=== PATIENT | female | born 1995 | race Caucasian/White ===

== ENCOUNTER 2021-11-25 01:23 | Emergency (ER) | payer OTHER, SELFPAY ==
[2021-11-25 01:24] VITALS: BP 141/97; PULSE 94; RESP 18; TEMP 36.8; O2SAT 97; BMI 37.2
[2021-11-25 01:42] VITALS: BMI 27.3
--- NOTE | 2021-11-25 01:43 | CT_ITS ---
PROCEDURE INFORMATION: Exam: CT Abdomen And Pelvis With Contrast Exam date and time: 11/25/2021 1:43 AM Age: 26 years old Clinical indication: Abdominal pain; Other: Mid abdomen pain radiating to RT flank; Prior surgery; Surgery date: 6+ months; Surgery type: Gb; Additional info: Abd pain TECHNIQUE: Imaging protocol: Computed tomography of the abdomen and pelvis with contrast. Radiation optimization: All CT scans at this facility use at least one of these dose optimization techniques: automated exposure control; mA and/or kV adjustment per patient size (includes targeted exams where dose is matched to clinical indication); or iterative reconstruction. Contrast material: ISOVUE; Contrast volume: 75 ml; Contrast route: IV; COMPARISON: PTV US PELVIS-TRANSVAGINAL ONLY 02/09/2015 11:35 AM FINDINGS: Liver: There is diffuse hypoattenuation of the liver compatible with mild hepatic steatosis. Gallbladder and bile ducts: There are surgical clips within the gallbladder fossa. Pancreas: Normal. No ductal dilation. Spleen: Normal. No splenomegaly. Adrenal glands: Normal. No mass. Kidneys and ureters: Normal. No hydronephrosis. Stomach and bowel: Unremarkable. No obstruction. No mucosal thickening. Appendix: No evidence of appendicitis. Intraperitoneal space: Unremarkable. No free air. No significant fluid collection. Vasculature: Unremarkable. No abdominal aortic aneurysm. Lymph nodes: Right lower quadrant multiple mesenteric nodes measuring greater than 5 mm in short axis are present, which can be seen with mesenteric adenitis. Urinary bladder: Unremarkable as visualized. Reproductive: Unremarkable as visualized. Bones/joints: Unremarkable. No acute fracture. Soft tissues: Normal. IMPRESSION: Right lower quadrant multiple mesenteric nodes measuring greater than 5 mm in short axis are present, which can be seen with mesenteric adenitis.
[2021-11-25 01:47] VITALS: BP 141/97; PULSE 107; TEMP 37; O2SAT 97
[2021-11-25 01:49] LABS: Microscopic, Urine URINE MICROSCOPIC (MICROSCOPIC)
[2021-11-25 01:52] LABS: Basophils # 0.1 K/mm3 (0-0.2); Eosinophils # 0.2 K/mm3 (0.0-0.4); Eosinophils % 1.3 % (0.1-12.0); Hematocrit 41.5 % (37.0-47.0); Hemoglobin 13.6 g/dL (12.2-16.2); Lymphocytes # 4.1 K/mm3 (0.7-4.5); Lymphocytes % 36.7 % (10-50); Mean Corpuscular HGB Conc 32.7 g/dL (31.8-35.4); Mean Corpuscular Hemoglobin 29.7 pg (27.0-31.2); Mean Corpuscular Volume 90.8 fl (81-99); Mean Platelet Volume 7.3 fl (7.4-10.4); Monocytes # 0.6 K/mm3 (0.1-1.0); Monocytes % 5.2 % (1.7-9.3); Neutrophils # 6.2 K/mm3 (1.8-7.8); Neutrophils % 55.8 % (37.0-80.0); Platelet Count 399 K/mm3 (142-424); Red Blood Count 4.57 M/mm3 (4.20-5.40); Red Cell Distribution Width 12.9 % (11.5-17.5); White Blood Count 11.2 K/mm3 (4.8-10.8)
[2021-11-25 01:56] LABS: Appearance,Urine CLOUDY (Clear); Bilirubin,Urine Negative (Negative); Blood, Urine Negative (Negative); Color,Urine YELLOW (Yellow); Glucose,Urine (UA) Negative (Negative); Ketones,Urine Negative (Negative); Leukocyte Esterase,Urine Negative (Negative); Nitrate,Urine Negative (Negative); PH,Urine 7.5 (5.0-8.5); Protein,Urine Negative (Negative)
[2021-11-25 01:57] LABS: Alanine Aminotransferase 19 U/L (12-78); Albumin Level 4.1 g/dl (3.5-5.0); Albumin/Globulin Ratio 1.4 (1.1-1.8); Alkaline Phosphatase 62 U/L (38-126); Amylase 77 U/L (30-110); Anion Gap 11.9 mEq/L (5-15); Aspartate Amino Transferase 27 U/L (14-36); Bilirubin,Total 0.4 mg/dl (0.2-1.3); Blood Urea Nitrogen 13 mg/dl (7-17); Calcium 9.2 mg/dl (8.4-10.2); Carbon Dioxide 27 mmol/L (22.0-30.0); Chloride 104 mmol/L (98-107); Creatinine Clearance Estimated 136 mL/min (50-200); Estimated Glomerular Filt Rate 86 ml/min (>60); GFR (African American) 104 ML/MIN (>60); Glucose 90 mg/dl (74-100); Lipase 72 U/L (23-300); Potassium 3.9 mmoL/L (3.5-5.1); Sodium 139 mmol/L (136-145); Total Protein,Serum 7.1 g/dl (6.3-8.2)
[2021-11-25 01:59] LABS: Urine Pregnancy, HCG Qual. Negative (Negative)
[2021-11-25 02:03] LABS: C-Reactive Protein 27.5 mg/L (0-4)
[2021-11-25 02:08] LABS: Amorphous Sediment,Urine 1+ /lpf; Bacteria,Urine 3+ /lpf; Mucus,Urine 1+ /lpf
[2021-11-25 02:16] LABS: Procalcitonin 0.051 ng/mL (0.0-2.0)
[2021-11-25 02:19] LABS: Erythrocyte Sedimentation Rate 19 mm/hr (0-20)
--- NOTE | 2021-11-25 02:24 | HMH.EDNVD ---
ED Disposition Clinical Impression: Sphincter of Oddi dysfunction Abdominal pain Qualifiers: Abdominal location: right upper quadrant Qualified Code(s): R10.11 - Right upper quadrant pain Disposition: Home, Self-Care Condition on Discharge: Good Instructions: DI for Acute Abdominal Pain Additional Instructions: fluids and see pcp for follow up Referrals: Tulio Hill [Primary Care Provider] - - Critical Care Critical Care Time: No Attestation: On 11/25/21, the high probability of a clinically significant, sudden or life threatening deterioration of the following system(s) required my full and direct attention, intervention and personal management. The time I documented below is in addition to time spent performing reported procedures but includes the following listed in this critical care notation. Medical Decision Making - Medical Records Medical records reviewed: Yes: I reviewed the patient's medical records. - Yan Inquiry Pt receiving controlled substance: No Vital Signs: 11/25/21 01:24 11/25/21 01:47 Temperature 98.2 F 98.6 F Temperature Source Oral Oral Pulse Rate 107 H Pulse Rate [Apical] 94 H Respiratory Rate 18 Blood Pressure 141/97 H Blood Pressure [Right Arm] 141/97 H Blood Pressure Mean [Right Arm] 111 Blood Pressure Source [Right Arm] Automatic Cuff Blood Pressure Position [Right Arm] Sitting 02 Sat by Pulse Oximetry 97 97 Oxygen Delivery Method Room Air Room Air - Lab Data Lab results reviewed: Yes: I reviewed the patient's lab results. Lab Results 11/25/21 01:41: Urine Color Yellow, Urine Appearance Cloudy, Urine pH 7.5, Ur Specific [place] 1.020, Urine Protein Negative, Urine Glucose (UA) Negative, Urine Ketones Negative, Urine Blood Negative, Urine Nitrate Negative, Urine Bilirubin Negative, Urine Urobilinogen 1.0, Ur Leukocyte Esterase Negative, Urine WBC 3-5, Ur Squamous Epith Cells 5-10, Amorphous Sediment 1+, Urine Bacteria 3+, Urine Mucus 1+ 11/25/21 01:41: WBC 11.2 H, RBC 4.57, Hgb 13.6, Hct 41.5, MCV 90.8, MCH 29.7, MCHC 32.7, RDW 12.9, Plt Count 399, MPV 7.3 L, Neut % (Auto) 55.8, Lymph % (Auto) 36.7, [place] % (Auto) 5.2, Eos % (Auto) 1.3, Baso % (Auto) 1.0, Neut # (Auto) 6.2, Lymph # (Auto) 4.1, [place] # (Auto) 0.6, Eos # (Auto) 0.2, Baso # (Auto) 0.1, ESR 19 11/25/21 01:41: Urine HCG, Qual Negative 11/25/21 01:41: Sodium 139, Potassium 3.9, Chloride 104, Carbon Dioxide 27, Anion Gap 11.9, BUN 13, Creatinine 0.80, Estimated Creat Clear 136, Estimated GFR 86, Est GFR ( Amer) 104, Glucose 90, Calcium 9.2, Total Bilirubin 0.4, AST 27, ALT 19, Alkaline Phosphatase 62, C-Reactive Protein 27.5 H, Total Protein 7.1, Albumin 4.1, Globulin 3.0, Albumin/Globulin Ratio 1.4, Amylase 77, Lipase 72, Procalcitonin 0.051 11/25/21 01:41: HCG, Quant < 2 Result diagrams: 11/25/21 01:41 11/25/21 01:41 Orders (Tests/Meds): ED MEDICATIONS Generic Name Dose Route Start Last Admin Trade Name Freq PRN Reason Stop Dose Admin Sodium Chloride 1,000 mls @ 999 mls/hr 11/25/21 01:45 11/25/21 01:45 Sod Chlor 0.9% 1000ml Bag IV 11/25/21 02:45 999 mls/hr .Q1H1M CHARI Administration Discontinued Medications Generic Name Dose Route Start Last Admin Trade Name Freq PRN Reason Stop Dose Admin Iopamidol 75 ml 11/25/21 02:33 11/25/21 02:34 Iopamidol-370 (76%);100ml Bottle IV 11/25/21 02:34 75 ml ONCE ONE Administration Ketorolac Tromethamine 30 mg 11/25/21 02:43 11/25/21 02:47 Ketorolac 30mg/Ml Vial IV 11/25/21 02:44 30 mg ONCE ONE Administration Ondansetron HCl 4 mg 11/25/21 01:45 11/25/21 02:47 Ondansetron 4mg/2ml Vial IV 11/25/21 01:46 4 mg ONCE ONE Administration Sodium Chloride 10 ml 11/25/21 02:33 11/25/21 02:34 Sodium Chloride 0.9% 10ml Syr (Rad Only) IV 11/25/21 02:34 10 ml ONCE ONE Administration ORDERS Category Date Time Status Urine Culture Stat Micro 11/25/21 01:41 Received - CT Data CT Scan: Abdomen
[2021-11-25 02:53] LABS: HCG,Quantitative < 2 mIU/ml (0-5.42)
[2021-11-25 02:59] VITALS: BP 119/86; PULSE 86; RESP 18; O2SAT 98
[2021-11-25 03:02] VITALS: BP 130/91; PULSE 85; RESP 16; TEMP 36.6; O2SAT 97
[2021-11-25 03:28] VITALS: BP 130/91; PULSE 81; RESP 17; O2SAT 99
== END 2021-11-25 03:30 | disposition home or self-care (01) ==
PROVIDERS: Emergency Provider Emergency Medicine; PCP Pediatrics
DX: K83.4 Spasm of sphincter of Oddi (principal); R10.11 Right upper quadrant pain
CPT/HCPCS: 74177; 80053; 81001; 81025; 82150; 83690; 84145; 84702; 85025; 85651; 86140; 87086; 96365; 96375; 99283; J2405; Q9967

== ENCOUNTER 2022-05-31 04:38 | Emergency (ER) | payer OTHER, SELFPAY ==
--- NOTE | 2022-05-31 04:48 | ECG_ITS ---
APPROVED REPORT Exam: Resting ECG HR:74 bpm ECG Measurements Heart Rate 74 AXES NM 151 P 70 QRSd 89 QRS 71 QT 375 T 42 QTc 402 Conclusion SINUS RHYTHM NONSPECIFIC T-WAVE ABNORMALITY BORDERLINE ECG UNCONFIRMED REPORT Electronically signed by : Jones Tillman MD 05/31/2022 17:00:06
[2022-05-31 04:50] VITALS: BP 134/92; PULSE 80; RESP 18; TEMP 36.7; O2SAT 98; BMI 37.9
[2022-05-31 04:58] VITALS: BMI 37.9
--- NOTE | 2022-05-31 04:58 | XR_ITS ---
PROCEDURE INFORMATION: Exam: XR Chest Exam date and time: 05/31/2022 5:05 AM Age: 27 years old Clinical indication: Pain; Radiating; Additional info: Radiaiting chest pain TECHNIQUE: Imaging protocol: Radiologic exam of the chest. Views: 2 views. COMPARISON: CT ABDOMEN PELVIS W CON 11/25/2021 2:23 AM FINDINGS: Lungs: No focal airspace disease. Calcified granuloma in the right upper lobe. Pleural spaces: Unremarkable. No pleural effusion. No pneumothorax. Heart/Mediastinum: Cardiomediastinal silhouette is within normal limits. Bones/joints: Unremarkable. IMPRESSION: No acute cardiopulmonary abnormality.
[2022-05-31 05:01] VITALS: BP 119/81; PULSE 82; O2SAT 99
[2022-05-31 05:14] LABS: Basophils # 0.1 K/mm3 (0-0.2); Basophils % 0.6 % (0.1-2.0); Eosinophils # 0.1 K/mm3 (0.0-0.4); Eosinophils % 1.2 % (0.1-12.0); Hematocrit 37.5 % (37.0-47.0); Hemoglobin 13.4 g/dL (12.2-16.2); Lymphocytes # 3.9 K/mm3 (0.7-4.5); Lymphocytes % 40.2 % (10-50); Mean Corpuscular HGB Conc 35.7 g/dL (31.8-35.4); Mean Corpuscular Hemoglobin 30.4 pg (27.0-31.2); Mean Corpuscular Volume 85.2 fl (81-99); Mean Platelet Volume 6.9 fl (7.4-10.4); Monocytes # 0.5 K/mm3 (0.1-1.0); Monocytes % 5.7 % (1.7-9.3); Neutrophils % 52.2 % (37.0-80.0); Platelet Count 372 K/mm3 (142-424); Red Cell Distribution Width 12.6 % (11.5-17.5); White Blood Count 9.6 K/mm3 (4.8-10.8)
[2022-05-31 05:21] LABS: Alanine Aminotransferase 54 U/L (12-78); Albumin Level 4.2 g/dl (3.5-5.0); Alkaline Phosphatase 74 U/L (38-126); Anion Gap 9.9 mEq/L (5-15); Aspartate Amino Transferase 44 U/L (14-36); Bilirubin,Unconjugated 0.4 mg/dL (0.0-1.1); Blood Urea Nitrogen 16 mg/dl (7-17); Calcium 8.7 mg/dl (8.4-10.2); Carbon Dioxide 27 mmol/L (22.0-30.0); Chloride 105 mmol/L (98-107); Creatinine Clearance Estimated 160 mL/min (50-200); Estimated Glomerular Filt Rate 85 ml/min (>60); GFR (African American) 103 ML/MIN (>60); Glucose 98 mg/dl (74-100); Magnesium 1.6 mg/dl (1.6-2.3); Potassium 3.9 mmoL/L (3.5-5.1); Sodium 138 mmol/L (136-145); Total Protein,Serum 7.2 g/dl (6.3-8.2)
[2022-05-31 05:23] LABS: Microscopic, Urine URINE MICROSCOPIC (MICROSCOPIC)
[2022-05-31 05:24] LABS: Bilirubin,Indirect 0.1 mg/dL (0.0-0.9); Bilirubin,Total 0.1 mg/dl (0.2-1.3)
[2022-05-31 05:25] LABS: HCG Qualitative, Serum Negative (Negative)
[2022-05-31 05:26] LABS: C-Reactive Protein 6.8 mg/L (0-4)
[2022-05-31 05:27] LABS: Appearance,Urine CLEAR (Clear); Bilirubin,Urine Negative (Negative); Blood, Urine Negative (Negative); Color,Urine YELLOW (Yellow); Glucose,Urine (UA) Negative (Negative); Ketones,Urine Negative (Negative); Leukocyte Esterase,Urine Negative (Negative); Nitrate,Urine Negative (Negative); Protein,Urine Negative (Negative); Specific Gravity, Urine >= 1.030 (1.005-1.030); Urobilinogen,Urine 0.2 EU/dl (0.2)
[2022-05-31 05:31] VITALS: BP 150/97; PULSE 68; RESP 22; O2SAT 97
[2022-05-31 05:42] LABS: Troponin I < 0.01 ng/ml (0.00-0.034)
[2022-05-31 05:43] LABS: Erythrocyte Sedimentation Rate 17 mm/hr (0-20)
[2022-05-31 05:44] LABS: Bacteria,Urine 1+ /lpf; Mucus,Urine 1+ /lpf; WBC,Urine Occasional #/hpf (0-3)
[2022-05-31 05:55] LABS: Coronavirus 19, PCR Not Detected (NotDetected); Influenza A, PCR Not Detected (NotDetected); Influenza B, PCR Not Detected (NotDetected)
--- NOTE | 2022-05-31 06:00 | HMH.EDEXTP ---
ED Disposition Clinical Impression: Lumbar radicular pain Disposition: Home, Self-Care Condition on Discharge: Good Instructions: DI for Lumbar Radiculopathy Additional Instructions: use meds and see pcp for follow up Prescriptions: predniSONE [Prednisone 20mg Tab] 20 mg PO BID #10 tab Transmission Status: Pending to [facility]/pharmacy #[id number] Referrals: Tulio Hill [Primary Care Provider] - - Critical Care Critical Care Time: No Attestation: On 05/31/22, the high probability of a clinically significant, sudden or life threatening deterioration of the following system(s) required my full and direct attention, intervention and personal management. The time I documented below is in addition to time spent performing reported procedures but includes the following listed in this critical care notation. Medical Decision Making - Medical Records Medical records reviewed: Yes: I reviewed the patient's medical records. - Yan Inquiry Pt receiving controlled substance: No Vital Signs: 05/31/22 04:50 05/31/22 05:01 05/31/22 05:31 Temperature 98.0 F Temperature Source Oral Pulse Rate 82 68 Pulse Rate [Apical] 80 Respiratory Rate 18 22 Blood Pressure 119/81 150/97 H Blood Pressure [Right Arm] 134/92 H Blood Pressure Mean [Right Arm] 106 Blood Pressure Source [Right Arm] Automatic Cuff Blood Pressure Position [Right Arm] Sitting 02 Sat by Pulse Oximetry 98 99 97 Oxygen Delivery Method Room Air Room Air - Lab Data Lab results reviewed: Yes: I reviewed the patient's lab results. Lab Results 05/31/22 04:50: WBC 9.6, RBC 4.40, Hgb 13.4, Hct 37.5, MCV 85.2, MCH 30.4, MCHC 35.7 H, RDW 12.6, Plt Count 372, MPV 6.9 L, Neut % (Auto) 52.2, Lymph % (Auto) 40.2, [place] % (Auto) 5.7, Eos % (Auto) 1.2, Baso % (Auto) 0.6, Neut # (Auto) 5.0, Lymph # (Auto) 3.9, [place] # (Auto) 0.5, Eos # (Auto) 0.1, Baso # (Auto) 0.1, ESR 17 05/31/22 04:50: Sodium 138, Potassium 3.9, Chloride 105, Carbon Dioxide 27, Anion Gap 9.9, BUN 16, Creatinine 0.80, Estimated Creat Clear 160, Estimated GFR 85, Est GFR ( Amer) 103, Glucose 98, Calcium 8.7, Total Bilirubin 0.1 L, Direct Bilirubin 0.0, Conjugated Bilirubin 0.0, Indirect Bilirubin 0.1, Unconjugated Bilirubin 0.4, AST 44 H, ALT 54, Alkaline Phosphatase 74, Troponin I < 0.01, C-Reactive Protein 6.8 H, Total Protein 7.2, Albumin 4.2, Procalcitonin 0.060 05/31/22 04:50: Magnesium 1.6 05/31/22 04:50: Serum HCG, Qual Negative 05/31/22 04:50: Thyroxine (T4) 11.8 H 05/31/22 05:19: Urine Color Yellow, Urine Appearance Clear, Urine pH 6.0, Ur Specific [place] >= 1.030, Urine Protein Negative, Urine Glucose (UA) Negative, Urine Ketones Negative, Urine Blood Negative, Urine Nitrate Negative, Urine Bilirubin Negative, Urine Urobilinogen 0.2, Ur Leukocyte Esterase Negative, Urine WBC Occasional, Ur Squamous Epith Cells 5-10, Urine Bacteria 1+, Urine Mucus 1+ 05/31/22 05:51: SARS-CoV-2 (PCR) Not detected, Influenza A Untype (PCR) Not detected, Influenza Type B (PCR) Not detected Result diagrams: 05/31/22 04:50 05/31/22 04:50 Orders (Tests/Meds): ED MEDICATIONS Generic Name Dose Route Start Last Admin Trade Name Freq PRN Reason Stop Dose Admin Sodium Chloride 1,000 mls @ 999 mls/hr 05/31/22 05:15 05/31/22 05:04 Sod Chlor 0.9% 1000ml Bag IV 05/31/22 06:15 999 mls/hr .Q1H1M CHARI Administration ORDERS Category Date Time Status XR chest 2V Stat Exams 05/31/22 04:58 Taken T4 (Thyroxine) Stat Lab 05/31/22 04:50 Results Thyroid Stimulating Hormone Stat Lab 05/31/22 04:50 Results Troponin I Q3H Lab 05/31/22 08:15 Ordered Troponin I Q3H Lab 05/31/22 11:15 Ordered - Radiology Data #1 Image(s): Chest Image Reviewed: Yes I reviewed the patient's radiology image Preliminary Findings: Normal/NAD - ECG Data Tracing #1 Normal Sinus Rhythm: Yes Ischemic changes: non-specific ST-T wave changes - JESE Score for Non-Stemi Age of Patient: <30 years o
--- NOTE | 2022-05-31 06:04 | CA_ITS ---
FINAL REPORT CLINICAL HISTORY: swelling /pain HT 5'3 wt 214lb FINDINGS: Color Doppler, duplex Doppler and compression sonography of the bilateral lower extremities was performed. There is no evidence of deep venous thrombosis from the level of the groin to the calf. The deep veins are patent and compressible. IMPRESSION: No evidence of deep venous thrombosis bilateral lower extremities. Reviewed, Interpreted and Dictated by Vipin Thompson III, MD Transcribed by Tori Valdez Authenticated and [facility]
[2022-05-31 06:35] LABS: T4 (Thyroxine) 11.8 ug/dl (5.53-11.0)
[2022-05-31 06:48] LABS: Thyroid Stimulating Hormone 3.18 uIU/mL (0.465-4.68)
--- NOTE | 2022-05-31 06:49 | PC.NURSE ---
senior engineering technician at bedside for venous doppler study.
[2022-05-31 06:56] VITALS: BP 150/97; PULSE 68; RESP 18; TEMP 36.8; O2SAT 99
[2022-05-31 07:18] VITALS: BP 123/74; PULSE 74; RESP 16; TEMP 36.6; O2SAT 98
== END 2022-05-31 07:20 | disposition home or self-care (01) ==
PROVIDERS: Emergency Provider Emergency Medicine; PCP Pediatrics
DX: M54.16 Radiculopathy, lumbar region (principal); M79.605 Pain in left leg; M79.604 Pain in right leg; R20.0 Anesthesia of skin; Z86.16 Personal history of COVID-19
CPT/HCPCS: 71046; 80048; 80076; 81001; 83735; 84145; 84436; 84443; 84484; 84703; 85025; 85651; 86140; 93005; 93970; 96374; 99284; C9803; U0003; U0005

== ENCOUNTER 2022-12-03 23:31 | Emergency (ER) | payer OTHER, SELFPAY ==
[2022-12-03 23:33] VITALS: BP 135/83; PULSE 100; RESP 18; TEMP 36.7; O2SAT 98; BMI 39.3
[2022-12-03 23:37] VITALS: BP 135/83; PULSE 117; O2SAT 98
[2022-12-04 00:09] LABS: Urine Pregnancy, HCG Qual. Positive (Negative)
--- NOTE | 2022-12-04 00:38 | HMH.EDSKAF ---
Discharge Plan Disposition Patient Disposition: Home, Self-Care Prescriptions Prescriptions: New cephalexin [cephalexin] 500 mg capsule 500 mg PO TID Qty: 21 0RF Referrals Follow up/Referrals: Tulio Hill [Primary Care Provider] - See instructions Clinical Impressions Clinical Impression: Acute lymphadenitis, Instructions Patient Instructions: Sore Throat Discharge ED Provider: Nolan Galvan Skin/Abscess/FB HPI General Chief complaint: Skin/Abscess/Foreign Body Stated complaint: knot behind ear, congestion, cough Time Seen by Provider: 12/04/22 00:38 Mode of Arrival: Ambulatory Source of Information: Patient and Medical Record Limitations: No Limitations Description of Symptoms (Recalled from ER Triage Doc. by RN): pt states that she had a lump come up in her throat yesterday and that the lump has grown and now feels like it is pressing on her epophagus. the pt states that she has a hx of needing to get her esophagus stretched History of Present Illness HPI narrative: has lt sided swollen lymph node with element of painful swallowing - no voice changes- pt reports possible Onset (ago): day(s) Location: neck Severity: moderate Associated symptoms: denies other symptoms Related Data Previous Rx's Medication Instructions Recorded cephalexin 500 mg capsule 500 mg PO TID #21 caps 12/04/22 Allergies Allergy/AdvReac Type Severity Reaction Status Date / Time From BENADRYL Allergy Mild hyperactivi Uncoded 05/31/22 04:50 ty PCN (PENICILLIN) Allergy Mild Uncoded 11/18/17 15:26 PFSH PFSH Disclaimer: The information contained in this section may have been updated after the patient was seen, as this information can be updated by other users. Social History Smoking Status: Never smoker alcohol intake: never current occupational status: employed Travel in the last 8 weeks: None ROS Obtained: Yes All systems reviewed & no additional complaints except as documented Physical Exam General General appearance: alert Head Head exam: normocephalic Eye Eye exam: Present PERRL and EOMI ENT ENT exam: Present normal oropharynx, mucous membranes moist, TM's normal bilaterally and other (swollen lt submandibular node ) Neck Neck exam: Present trachea midline; Absent meningismus Respiratory Respiratory exam: Absent respiratory distress Cardiovascular Cardiovascular exam: Present regular rate Abdominal Exam Abdominal exam: Present soft Extremities Exam Extremities exam: Present full ROM Neurological Exam Neurological exam: Present alert, oriented X3 and CN II-XII intact; Absent motor sensory deficit Psychiatric Psychiatric exam: Present normal affect Skin Skin exam: Absent rash Lymphatic Lymphatic Findings: other (lt submandibular node - tender) Medical Decision Making Medical Records Medical records reviewed: Yes I reviewed the patient's medical records. Yan Inquiry Pt receiving controlled substance: No Vital Signs: 12/03/22 23:37 12/03/22 23:33 Temperature 98.1 F Temperature Source Oral Pulse Rate 117 H Pulse Rate [Left] 100 H Respiratory Rate 18 Blood Pressure 135/83 Blood Pressure [Right Arm] 135/83 Blood Pressure Mean [Right Arm] 100 02 Sat by Pulse Oximetry 98 98 Oxygen Delivery Method Room Air Lab Data Lab results reviewed: Yes I reviewed the patient's lab results. Lab Results 12/04/22 00:00: Urine HCG, Qual Positive 12/04/22 00:18: Group A Strep Rapid Negative 12/04/22 00:27: Monoscreen Negative 12/04/22 00:27: Serum HCG, Qual Positive Orders (Tests/Meds): ORDERS Category Date Time Status HCG Qualitative, Serum Stat Lab 12/04/22 00:27 Completed Monoscreen (Rapid) Stat Lab 12/04/22 00:27 Completed Rapid Strep Scrn Group A [Strep Scrn Group A (Rapid)] Lab 12/04/22 00:18 Completed Stat Urine , HCG Qual. Stat Lab 12/03/22 23:58 Completed Strep Screen Confirmation Stat Micro 12/04/22 00:18
[2022-12-04 00:53] LABS: Strep Scrn Group A (Rapid) Negative (Negative)
[2022-12-04 00:57] LABS: Monoscreen (Rapid) Negative (Negative)
[2022-12-04 01:01] LABS: HCG Qualitative, Serum Positive (Negative)
[2022-12-04 01:24] VITALS: BP 130/80; PULSE 98; RESP 16; TEMP 36.6; O2SAT 98
[2022-12-04 01:55] LABS: HCG,Quantitative 101 mIU/ml (0-5.42)
== END 2022-12-04 01:33 | disposition home or self-care (01) ==
PROVIDERS: Emergency Provider Emergency Medicine; PCP Pediatrics
DX: L04.0 Acute lymphadenitis of face, head and neck (principal); Z32.01 Encounter for pregnancy test, result positive
CPT/HCPCS: 81025; 84702; 84703; 86318; 87430; 99283; 99284

== ENCOUNTER 2023-01-17 06:34 | Day surgery (SDC) | payer OTHER, SELFPAY ==
[2023-01-17] VITALS (23 sets, daily range): BP systolic 114–148; BP diastolic 70–100; PULSE 80–102; RESP 15–20; TEMP 36.3–43; O2SAT 93–100; BMI 38.9
[2023-01-17 07:23] LABS: Chloride 109 mmol/L (98-107); HCG Qualitative, Serum Positive (Negative); Potassium 4.3 mmoL/L (3.5-5.1); Sodium 141 mmol/L (136-145)
[2023-01-17 07:25] LABS: Alanine Aminotransferase 39 U/L (12-78); Aspartate Amino Transferase 39 U/L (14-36); Blood Urea Nitrogen 9 mg/dl (7-17); Creatinine Clearance Estimated 188 mL/min (50-200); Estimated Glomerular Filt Rate 100 ml/min (>60); GFR (African American) 121 ML/MIN (>60)
[2023-01-17 07:26] LABS: Albumin Level 3.9 g/dl (3.5-5.0); Albumin/Globulin Ratio 1.3 (1.1-1.8); Alkaline Phosphatase 49 U/L (38-126); Anion Gap 11.3 mEq/L (5-15); Bilirubin,Total 0.2 mg/dl (0.2-1.3); Calcium 8.8 mg/dl (8.4-10.2); Carbon Dioxide 25 mmol/L (22.0-30.0); Globulin 2.9 g/dL (1.3-3.2); Glucose 100 mg/dl (74-100); Total Protein,Serum 6.8 g/dl (6.3-8.2)
[2023-01-17 07:27] LABS: Basophils # 0.1 K/mm3 (0-0.2); Eosinophils # 0.1 K/mm3 (0.0-0.4); Eosinophils % 1.2 % (0.1-12.0); Hematocrit 34.2 % (37.0-47.0); Hemoglobin 11.7 g/dL (12.2-16.2); Lymphocytes # 4.8 K/mm3 (0.7-4.5); Lymphocytes % 41.4 % (10-50); Mean Corpuscular HGB Conc 34.2 g/dL (31.8-35.4); Mean Corpuscular Hemoglobin 29.9 pg (27.0-31.2); Mean Corpuscular Volume 87.5 fl (81-99); Mean Platelet Volume 7.5 fl (7.4-10.4); Monocytes # 0.4 K/mm3 (0.1-1.0); Monocytes % 3.5 % (1.7-9.3); Neutrophils # 6.1 K/mm3 (1.8-7.8); Neutrophils % 52.9 % (37.0-80.0); Platelet Count 422 K/mm3 (142-424); Red Blood Count 3.91 M/mm3 (4.20-5.40); Red Cell Distribution Width 13.2 % (11.5-17.5); White Blood Count 11.5 K/mm3 (4.8-10.8)
[2023-01-17 07:28] LABS: Coronavirus 19, PCR Not Detected (NotDetected); Influenza A, PCR Not Detected (NotDetected); Influenza B, PCR Not Detected (NotDetected)
--- NOTE | 2023-01-17 07:35 | US_ITS ---
FINAL REPORT CLINICAL HISTORY: vaginal bleeding began 01/11, ? miscarriage @ 9wk2d COMPARISON: None FINDINGS: PELVIC ULTRASOUND TECHNIQUE: Transvaginal exam The uterus is anteverted and retroflexed. The endometrial stripe is thickened at 13 mm. There is fluid within the endometrial cavity. No yolk sac or pole is identified. There are internal echoes within the endometrial cavity which could be blood products. Retained products are difficult to exclude. There is a small amount of fluid in the cervix. Left ovary measures 2.2 x 3.0 x 2.1 cm and is normal. Right ovary measures 3.4 x 1.9 x 2.6 cm and is normal. Color images of the ovaries are normal. There is no free fluid. IMPRESSION: No intrauterine gestation with thickened endometrium containing fluid with internal echoes, favor missed . Retained products of conception not excluded. Recommend follow-up exam with serial beta HCG levels. Reviewed, Interpreted and Dictated by Laura Diego MD Transcribed by Claire Garcia Authenticated and [facility]
--- NOTE | 2023-01-17 07:42 | PC.NURSE ---
radiology notified for request for transvaginal u/s
[2023-01-17 07:53] LABS: HCG,Quantitative 3619 mIU/ml (0-5.42)
--- NOTE | 2023-01-17 08:00 | HMH.EDGENADL ---
Discharge Plan Disposition Patient Disposition: Admitted as Observation Prescriptions Prescriptions: No Action promethazine 25 mg tablet 25 mg PO Q6HP PRN (Reason: Nausea And Vomiting) Label Comments: TAKE 1 TABLET BY MOUTH EVERY 6 HOURS NEEDED FOR NAUSEA OR VOMITING FOR UP TO 10 DAYS. Referrals Follow up/Referrals: Tulio Hill [Primary Care Provider] - See instructions Clinical Impressions Clinical Impression: Incomplete , Vaginal bleeding, Retained products of conception Discharge ED Provider: Cole (ED)Nolan General Adult HPI General Chief complaint: Vaginal Bleeding Stated complaint: oleg 01/11/23 now passing large blood love Time Seen by Provider: 01/17/23 08:00 Mode of Arrival: Family Vehicle Source of Information: Patient Limitations: No Limitations Description of Symptoms (Recalled from ER Triage Doc. by RN): Pt c/o heavy vaginal bleeding with large clots today. She was seen here on 01/11 and dx with a miscarrige of a 9w2d fetus. States since she was dx, she has been having vaginal pain, bilat low pelvic pain (L>R), n/v/d, low grade temp (t max 100.4), and body aches. She also reports that she has gone through a 40 pack of heavy pads in 5 days. She called her OB @ [facility] and requesting nausea medications and she wass ent in phenergan. Pt has been tkaing tylenol, motrin and phenergan, but has not s/w OB regarding these excessive clots. History of Present Illness HPI narrative: Patient is a 27-year-old female G4, P3 at 9 weeks by dates presents today with 5 days of ongoing vaginal bleeding and passage of clots and tissue. She also has associated lower abdominal crampiness and significant abdominal pain with this. She denies any history of pelvic inflammatory disease or ectopic . She did states she had a low-grade fever possibly episode 101 degrees a few days ago. She has been taking significant amounts of ibuprofen since that time. Denies any purulent discharge. States that this morning around 4 AM she passed a lemon sized clot that was in slimy and states that this was different than the clot she passed in the past. However she has continued to have some vaginal bleeding. States that she is bleeding through a pad about 1 an hour and this has been ongoing since Friday. She denies any lightheadedness but does state that she has been significantly fatigued since this has been going on. She also claims that she had significant nausea associated with this pain is moderate. She has been in communication with her C[facility]IST team at [facility] and they just told her to take ibuprofen in the meantime. Related Data Home Medications Medication Instructions Recorded Confirmed promethazine 25 mg tablet 25 mg PO Q6HP PRN Nausea And 01/17/23 01/17/23 Vomiting Allergies Allergy/AdvReac Type Severity Reaction Status Date / Time From BENADRYL Allergy Mild hyperactivi Uncoded 05/31/22 04:50 ty PCN (PENICILLIN) Allergy Mild Uncoded 11/18/17 15:26 PFSH PFSH Disclaimer: The information contained in this section may have been updated after the patient was seen, as this information can be updated by other users. Social History (Updated 12/04/22 @ 01:24 by Nolan Galvan MD) Smoking Status: Never smoker alcohol intake: never current occupational status: employed Travel in the last 8 weeks: None ROS Obtained: Yes All systems reviewed & no additional complaints except as documented Physical Exam General General appearance: alert, in no apparent distress and appears intoxicated Chest Chest inspection: Present normal inspection; Absent symmetric chest wall rise or tenderness Respiratory Respiratory exam: Present normal lung sounds bilaterally; Absent respiratory distress, wheezes or stridor Cardiovascular Cardiovascular exam: Present regular rate and normal rhythm; Absent tachycardia Abdominal Exam Abdominal exam: Present soft and other (Significant t
--- NOTE | 2023-01-17 10:58 | PC.NURSE ---
paged dr wakefield, she is with a pt will call back
--- NOTE | 2023-01-17 11:53 | PC.NURSE ---
SPOKE WITH OR , DR MCGRATH IS GONNA TAKE PT FOR D&C PT IS AWARE AND DR MCGRATH WILL BE COMING DOWN TO SEE PT
--- NOTE | 2023-01-17 12:09 | PC.NURSE ---
DR Kam OBGYIsaac at bedside w pt and for informed consent discussion, exam
--- NOTE | 2023-01-17 12:37 | PC.NURSE ---
called or advised pt was ready for surgery
--- NOTE | 2023-01-17 12:47 | PC.NURSE ---
OR and low-op staff at bedside for transport of pt to procedure; report given, no further questions
--- NOTE | 2023-01-17 13:27 | P.PN_ITS ---
[facility] Disclaimer: The information contained in this section may have been updated after the patient was seen, as this information can be updated by other users. Social History (Updated 12/04/22 @ 01:24 by Nolan Galvan MD) Smoking Status: Never smoker alcohol intake: never substance use type: denies use current occupational status: employed Travel in the last 8 weeks: None [facility] Anesthesia Checklist Patient Identification Patient Identification: Arm Band Structural Data Admitted From: Emergency Dept Planned Operative Procedure/s: D&C with Kent Suction Consent for Planned Operative Procedure(s) Verified: Yes Verified Documents: Surgical Consent and History and Physical NPO Status Verified Time NPO: 04:00 Additional verifications Anesthesia Reactions: Yes (PONV) Airway Assessment C-Spine Mobility Assessed: Yes TMJ Mobility Assessed: Yes Dentition: Good Dentition Neurological Assessment Level of Consciousness: Awake and Alert Anesthesia Plan Anesthesia Risk discussed: Yes Anesthesia Plan: Verified ASA Class: II (E) Anesthesia Type: General
--- NOTE | 2023-01-17 13:43 | P.PNANES_ITS ---
[facility] Anesthesia Record Part I Anesthesia Record I Intake, IV Amount: 900 Estimated blood loss (mL): 400 Urine output (mL): 0 Blood Products used (#): none Blood Pressure: 114/70 SaO2: 93 Pulse Rate: 94 Respiratory Rate: 16 Temperature: 98.2 F Patient is:: Drowsy and Stable Stable to PACU at:: 13:40
--- NOTE | 2023-01-17 14:10 | EXP.HP ---
History of Present Illness *Admission Date: 01/17/23 *Reason for visit:: miscarriage *History of present illness: 27 yo @ 9 weeks by LMP care at [place] in [facility] Presented to the ED at [facility] today with excessive vaginal bleeding She began bleeding 7 days ago, and the bleeding has gotten progressively heavier She saw tissue passed at home and assumed she was having a miscarriage, but bleeding became so heavy that she was changing her pad every half hour + moderate cramping + lightheaded OB history significant for 3 previous CS No medications other than PNV Hgb 11.7 Blood type A negative, Antibody screen positive-- antibody identification still pending She was given Rhogam in the ED but the blood draw for labs was 1 hour before Rhogam administration Pelvic ultrasound showed possible retained products of conception, and could not delineate between POC and blood/clot [facility] Disclaimer: The information contained in this section may have been updated after the patient was seen, as this information can be updated by other users. Social History (Updated 01/17/23 @ 13:28 by Brown Clayton CRNA) Smoking Status: Never smoker alcohol intake: never substance use type: denies use current occupational status: employed Travel in the last 8 weeks: None Review of Systems Review of Systems Review of systems:: pertinent systems reviewed and negative unless documented below Constitutional Constitutional: Denies fever(s) ENT Ears, Nose, Mouth, and Throat: Reports vertigo *Genitourinary Genitourinary: Reports abnormal vaginal bleeding *Neurologic Neurologic: Reports vertigo Meds Home Medications and Allergies Home Medications Medication Instructions Recorded Confirmed Type promethazine 25 mg tablet 25 mg PO Q6HP PRN Nausea And 01/17/23 01/17/23 History Vomiting New Prescriptions to Start Prescriptions: Allergies Allergy/AdvReac Type Severity Reaction Status Date / Time From BENADRYL Allergy Mild hyperactivi Uncoded 05/31/22 04:50 ty PCN (PENICILLIN) Allergy Mild Uncoded 11/18/17 15:26 Exam Data for Last 24 hours Vital signs and Labs for Last 24 Hours: Temp Pulse Resp BP Pulse Ox 98.2 F 83 16 144/94 H 97 01/17/23 13:44 01/17/23 14:08 01/17/23 14:08 01/17/23 14:08 01/17/23 14:08 Laboratory Results - last 24 hr 02/17/23 06:56: WBC 11.5 H, RBC 3.91 L, Hgb 11.7 L, Hct 34.2 L, MCV 87.5, MCH 29.9, MCHC 34.2, RDW 13.2, Plt Count 422, MPV 7.5, Neut % (Auto) 52.9, Lymph % (Auto) 41.4, [place] % (Auto) 3.5, Eos % (Auto) 1.2, Baso % (Auto) 1.0, Neut # (Auto) 6.1, Lymph # (Auto) 4.8 H, [place] # (Auto) 0.4, Eos # (Auto) 0.1, Baso # (Auto) 0.1 01/17/23 06:56: Sodium 141, Potassium 4.3, Chloride 109 H, Carbon Dioxide 25, Anion Gap 11.3, BUN 9, Creatinine 0.70, Estimated Creat Clear 188, Estimated GFR 100, Est GFR ( Amer) 121, Glucose 100, Calcium 8.8, Total Bilirubin 0.2, AST 39 H, ALT 39, Alkaline Phosphatase 49, Total Protein 6.8, Albumin 3.9, Globulin 2.9, Albumin/Globulin Ratio 1.3, HCG, Quant 3619 H 01/17/23 06:56: Serum HCG, Qual Positive 01/17/23 07:13: SARS-CoV-2 (PCR) Not detected, Influenza A Untype (PCR) Not detected, Influenza Type B (PCR) Not detected 01/17/23 07:35: Blood Type A Negative, Antibody Screen Positive I & O for Last 24 hours: Intake & Output 01/15/23 01/16/23 01/17/23 01/18/23 11:59 11:59 11:59 11:59 Intake Total 900 / 900 Balance 900 / 900 Weight 220 lb Constitutional Constitutional: no acute distress *Routine HEENT Exam Head: Present normocephalic Eye: Absent conjunctival icterus or scleral injection ENT: Present mucous membranes moist *Routine Neck Exam Neck: Present supple *Routine Respiratory Exam Respiratory: Present CTA bilaterally; Absent respiratory distress *Routine Cardiovascular Exam Cardiovascular: Present RRR *Routine Abdominal Exam Abdominal: Present soft; Absent tenderness or distended *Routine Rectal Exam
--- NOTE | 2023-01-17 14:36 | EXP.OP.NOTE ---
Date of procedure: 01/17/23 Pre-op Diagnosis:: 1. Incomplete 2. Hemorrhage 3. Anemia Post-op Diagnosis:: Same Procedure performed:: Suction Dilation and Curettage Surgeon:: Juany Kam MD ADULT LITERACY INSTRUCTOR:: Brown Clayton Anesthesia: GETA Estimated blood loss (mL): 400 Operative findings:: Retained productes of conception Enlarged uterus Operative note:: The patient was taken to the OR and general anesthesia administered without difficulty. She was prepped and draped in lithotomy position. Bianchi retractors were used to visualize the cervix and a single tooth tenaculum placed on the anterior lip of the cervix. The cervix was passively dilated until it could accomodate the suction curette. A size # 10 curved curette was used to evacuate the contents of the uterus. Once the products of conception had been evacuated, sharp curettage was used to ensure that no products remained within the uterine cavity. All instruments were then removed from the patients vagina, she was taken out of lithotomy position, awakened from anesthesia and taken to the PACU in stable condition. EBL: 400cc Condition: stable Disposition: PACU Specimens:: Products of conception Complications:: None
--- NOTE | 2023-01-17 14:58 | P.PNANES_ITS ---
[facility] Anesthesia Record Part II Anesthesia Record Part II Discharge Time: 14:10 Destination: Surgical Day Care (OP Surgery) PACU nurse assessment reviewed?: Yes Patient Condition:: Good Anesthesia Complications:: None Swallowing reflex intact?: Yes Cyanosis?: No Blood Pressure: 144/94 Pulse Rate: 83 Temperature: 98.2 F Mental Status: Alert & Oriented Pain level:: 3 Nausea and/or vomitting:: None Intake, IV Amount: 0
== END 2023-01-17 14:51 | disposition home or self-care (01) ==
LOC: ER 11:46 → SDC 12:50
PROVIDERS: Emergency Provider Emergency Medicine; PCP Pediatrics; Visit Provider Obstetrics & Gynecology
PROC: (CPT 59812; principal; 2023-01-17 14:00)
DX: O03.4 Incomplete spontaneous abortion without complication (principal); Z67.91 Unspecified blood type, Rh negative; O26.899 Other specified pregnancy related conditions, unspecified trimester; D62 Acute posthemorrhagic anemia; N93.9 Abnormal uterine and vaginal bleeding, unspecified
CPT/HCPCS: 59812; 36415; 76817; 80053; 84702; 84703; 85025; 86870; 96374; C9803; J2405; J2790; U0003; U0005

== ENCOUNTER 2024-03-08 16:58 | Emergency (ER) | payer OTHER, SELFPAY ==
[2024-03-08 16:58] VITALS: BP 140/83; PULSE 89; RESP 16; TEMP 36.8; O2SAT 98; BMI 38.9
--- NOTE | 2024-03-08 17:06 | PC.NURSE ---
DR MCGRATH AT BEDSIDE
--- NOTE | 2024-03-08 17:09 | ECG_ITS ---
APPROVED REPORT Exam: Resting ECG HR:84 bpm ECG Measurements Heart Rate 84 AXES OR 151 P 42 QRSd 93 QRS 11 QT 374 T 17 QTc 416 Conclusion SINUS RHYTHM NORMAL ECG UNCONFIRMED REPORT Electronically signed by : Chin Kam, 03/08/2024 22:34:55
[2024-03-08 17:12] VITALS: BMI 30.9
--- NOTE | 2024-03-08 17:13 | XR_ITS ---
PROCEDURE INFORMATION: Exam: XR Chest Exam date and time: 03/08/2024 5:15 PM Age: 29 years old Clinical indication: Dyspnea TECHNIQUE: Imaging protocol: Radiologic exam of the chest. Views: 1 view. COMPARISON: CR XR CHEST 2V 05/31/2022 5:05 AM FINDINGS: Lungs: Low lung volumes. No consolidation. Stable right upper lobe calcified granuloma. Pleural spaces: No pleural effusion. No pneumothorax. Heart/Mediastinum: No cardiomegaly. Bones/joints: Unremarkable. IMPRESSION: No acute pulmonary findings.
--- NOTE | 2024-03-08 17:23 | PC.NURSE ---
XR AT BEDSIDE
[2024-03-08] MEDS: ONDANSETRON 4MG/2ML VIAL 4 MG IV (17:27)
[2024-03-08] MEDS: LACTATED RINGERS 1000ML 1,000 ML 999 ML IV (17:27)
[2024-03-08] MEDS: BELLADONNA ALKALOIDS 60 ML ML PO (17:27)
[2024-03-08] MEDS: FAMOTIDINE 20MG/2ML VIAL 20 MG IV (17:27)
--- NOTE | 2024-03-08 17:34 | HMH.EDGENADL ---
Discharge Plan Disposition Patient Disposition: Home, Self-Care Prescriptions Prescriptions: New ondansetron 4 mg tablet,disintegrating 4 mg PO Q6H PRN (Reason: nausea and vomiting) 5 Days Qty: 20 0RF No Action promethazine 25 mg tablet 25 mg PO Q6HP PRN (Reason: Nausea And Vomiting) Patient Comments: TAKE 1 TABLET BY MOUTH EVERY 6 HOURS NEEDED FOR NAUSEA OR VOMITING FOR UP TO 10 DAYS. oxycodone 5 mg tablet 5 mg PO Q8H PRN (Reason: pain) Qty: 12 0RF Referrals Follow up/Referrals: Tulio Hill [Primary Care Provider] - See instructions Activity Restrictions/Add. Instructions Additional Instructions/Restrictions: No emergent medical condition identified today. Please return with any significant worsening abdominal pain over the next 12 to 24 hours. Most likely her symptoms are secondary to gastroesophageal reflux disease. I recommend he take Maalox and Pepcid [id number] as discussed. You may also follow-up with a GI doctor or general surgeon to have an outpatient endoscopy if your symptoms continue to worsen. Clinical Impressions Clinical Impression: Epigastric discomfort, Nausea & vomiting, GERD (gastroesophageal reflux disease) Instructions Patient Instructions: DI for Acute Abdominal Pain Discharge ED Provider: Priya Kam General Adult HPI General Chief complaint: Abdominal Pain Stated complaint: hard lump above belly botton vomiting Time Seen by Provider: 03/08/24 17:06 Mode of Arrival: Family Vehicle Source of Information: Patient and Medical Record Limitations: No Limitations Description of Symptoms (Recalled from ER Triage Doc. by RN): Pt c/o supraumbilical painful & tender knot with nausea, and radiating pain into her chest and left upper arm. States I think its just gas pain since Friday. States the pain and nausea has been so severe it almost made me pass out . Previous gallbladder removal and takes Omeprazole BID however she feels this has not been helping. History of Present Illness HPI narrative: Patient is a 29-year-old female presenting today with midepigastric abdominal pain and nausea and vomiting for 3 days. States that it feels very much like reflux. She has a history of cholecystectomy 4 years ago. Still having bowel movements daily has not had any diarrhea. No lower abdominal discomfort. No fevers or chills. No sick contacts that she is aware. No exertional chest pain. No history of heavy drinking or pancreatic problems in the past Related Data Home Medications Medication Instructions Recorded Confirmed promethazine 25 mg tablet 25 mg PO Q6HP PRN Nausea And 01/17/23 01/17/23 Vomiting Previous Rx's Medication Instructions Recorded oxycodone 5 mg tablet 5 mg PO Q8H PRN pain #12 tabs 01/17/23 ondansetron 4 mg disintegrating 4 mg PO Q6H PRN nausea and 03/08/24 tablet vomiting 5 days #20 tabs Allergies Allergy/AdvReac Type Severity Reaction Status Date / Time diphenhydramine Allergy Other Verified 05/14/23 14:17 Penicillins Allergy Unknown Verified 05/14/23 14:17 allergy reaction [facility] Disclaimer: The information contained in this section may have been updated after the patient was seen, as this information can be updated by other users. Social History (Updated 01/17/23 @ 13:28 by Brown Clayton CRNA) Smoking Status: Never smoker alcohol intake: never substance use type: denies use current occupational status: employed Travel in the last 8 weeks: None ROS Obtained: Yes All systems reviewed & no additional complaints except as documented Physical Exam General General appearance: alert and in no apparent distress Respiratory Respiratory exam: Present normal lung sounds bilaterally and respiratory distress Cardiovascular Cardiovascular exam: Present regular rate and normal rhythm Abdominal Exam Abdominal exam: Present soft; Absent distention or tenderness Neurological Exam Neurological exam: Present alert and oriented X3 Medical Decision Making Yan Inquiry Pt receiving controlled substance: No Vital Signs: 03/08/24 16:58 03/08/24 18:00 Temperature 98.2 F Temperature Source Oral Pulse Rate 75 Pulse Rate [Right] 89 Respiratory Rate 16 Blood Pressure 125/88 Blood Pressure [Right Arm] 140/83 Blood Pressure Mean [Right Arm] 102 Blood Pressure Source [Right Arm] Automatic Cuff 02 Sat by Pulse Oximetry 98 100 Oxygen Delivery Method Room Air Room Air Lab Data Lab results reviewed: Yes I reviewed the patient's lab results. Lab Results 03/08/24 17:15: WBC 10.3, RBC 4.50, Hgb 13.9, Hct 41.0, MCV 91.1, MCH 30.8, MCHC 33.8, RDW 13.2, Plt Count 384, MPV 7.4, Neut % (Auto) 58.2, Lymph % (Auto) 35.0, [place] % (Auto) 4.8, Eos % (Auto) 0.9, Baso % (Auto) 1.1, Neut # (Auto) 6.0, Lymph # (Auto) 3.6, [place] # (Auto) 0.5, Eos # (Auto) 0.1, Baso # (Auto) 0.1, Sodium 138, Potassium 3.8, Chloride 105, Carbon Dioxide 26, Anion Gap 10.8, BUN 11, Creatinine 0.80, Estimated Creat Clear 133, Estimated GFR 84, Est GFR ( Amer) 102, Glucose 94, Calcium 9.1, Total Bilirubin 0.4, AST 30, ALT 23, Alkaline Phosphatase 60, Total Protein 7.1, Albumin 4.1, Globulin 3.0, Albumin/Globulin Ratio 1.4, Lipase 55, Serum HCG, Qual Negative 03/08/24 17:15 03/08/24 17:15 Orders (Tests/Meds): ED MEDICATIONS Generic Name Dose Route Start Last Admin Trade Name Freq PRN Reason Stop Dose Admin Sodium Chloride 8 ml 03/08/24 17:13 Sodium Chloride 0.9% 10ml Vial IV 04/07/24 17:12 NEEDED PRN dilute pepcid Discontinued Medications Generic Name Dose Route Start Last Admin Trade Name Freq PRN Reason Stop Dose Admin Belladonna Alkaloids 60 ml 03/08/24 17:13 03/08/24 17:27 Belladonna Alkaloids 60 Ml Ml PO 03/08/24 17:14 60 ml ONCE ONE Administration Famotidine 20 mg 03/08/24 17:13 03/08/24 17:27 Famotidine 20mg/2ml Vial IV 03/08/24 17:14 20 mg ONCE ONE Administration Lactated Ringer's 1,000 mls @ 999 mls/hr 03/08/24 17:15 03/08/24 17:27 Lactated Ringer's 1000 Ml Bag IV 03/08/24 18:15 999 mls/hr .Q1H1M CHARI Administration Ondansetron HCl 4 mg 03/08/24 17:13 03/08/24 17:27 Ondansetron 4mg/2ml Vial IV 03/08/24 17:14 4 mg ONCE ONE Administration ORDERS Category Date Time Status CXR --portable [XR chest portable] Stat Exams 03/08/24 17:13 Completed CBC w/Auto Diff [Complete Blood Count Auto Diff] Stat Lab 03/08/24 17:15 Completed CMP [Comprehensive Metabolic Panel] Stat Lab 03/08/24 17:15 Results HCG Qualitative, Serum Stat Lab 03/08/24 17:15 Completed Lipase Stat Lab 03/08/24 17:15 Results Trop I [Troponin I] Stat Lab 03/08/24 17:15 Results Troponin I Q3H Lab 03/08/24 20:15 Ordered Troponin I Q3H Lab 03/08/24 23:15 Ordered Medical Decision Narrative: Patient is a 29-year-old female with a benign abdominal exam presented with epigastric discomfort nausea and vomiting. States this feels very much like reflux which it is possible that it is were viral gastritis. I do not suspect a surgical pathology at this moment given her benign abdominal exam. Will get basic blood work give IV fluids administer Pepcid as well as GI cocktail and reassess. Holding off on CT imaging at the moment as I believe radiation exposure outweighs any benefit with current presentation. Chest x-ray performed which I first interpreted shows no acute abnormality. This not consistent with acute coronary syndrome or surgical pathology in the abdomen labs unremarkable serial abdominal exams benign patient follow-up significantly better after GI cocktail and Pepcid. This is most likely on the spectrum of GERD. She has no signs or symptoms of any bleeding ulcers or perforation etc. She has been advised to follow-up outpatient if needed and to take [id number] Pepcid and Maalox as needed for symptoms. She is tolerating p.o. prescription of Zofran also sent to her pharmacy return precautions emphasized patient discharged in stable condition Critical Care Critical Care Time Critical Care Time: No
[2024-03-08 17:38] LABS: Basophils # 0.1 K/mm3 (0-0.2); Basophils % 1.1 % (0.1-2.0); Eosinophils # 0.1 K/mm3 (0.0-0.4); Eosinophils % 0.9 % (0.1-12.0); Hemoglobin 13.9 g/dL (12.2-16.2); Lymphocytes # 3.6 K/mm3 (0.7-4.5); Mean Corpuscular HGB Conc 33.8 g/dL (31.8-35.4); Mean Corpuscular Hemoglobin 30.8 pg (27.0-31.2); Mean Corpuscular Volume 91.1 fl (81-99); Mean Platelet Volume 7.4 fl (7.4-10.4); Monocytes # 0.5 K/mm3 (0.1-1.0); Monocytes % 4.8 % (1.7-9.3); Neutrophils % 58.2 % (37.0-80.0); Platelet Count 384 K/mm3 (142-424); Red Cell Distribution Width 13.2 % (11.5-17.5); White Blood Count 10.3 K/mm3 (4.8-10.8)
[2024-03-08 17:55] LABS: Chloride 105 mmol/L (98-107); Potassium 3.8 mmoL/L (3.5-5.1); Sodium 138 mmol/L (136-145)
[2024-03-08 17:57] LABS: Blood Urea Nitrogen 11 mg/dl (7-17); Creatinine Clearance Estimated 133 mL/min (50-200)
[2024-03-08 17:58] LABS: Alanine Aminotransferase 23 U/L (12-78); Albumin Level 4.1 g/dl (3.5-5.0); Albumin/Globulin Ratio 1.4 (1.1-1.8); Alkaline Phosphatase 60 U/L (38-126); Anion Gap 10.8 mEq/L (5-15); Aspartate Amino Transferase 30 U/L (14-36); Bilirubin,Total 0.4 mg/dl (0.2-1.3); Calcium 9.1 mg/dl (8.4-10.2); Carbon Dioxide 26 mmol/L (22.0-30.0); Estimated Glomerular Filt Rate 84 ml/min (>60); GFR (African American) 102 ML/MIN (>60); Glucose 94 mg/dl (74-100); Lipase 55 U/L (23-300); Total Protein,Serum 7.1 g/dl (6.3-8.2)
[2024-03-08 18:00] VITALS: BP 125/88; PULSE 75; O2SAT 100
--- NOTE | 2024-03-08 18:00 | PC.NURSE ---
Rounded on pt, states pain is 5/10 on CHILD DEVELOPMENT INSTRUCTOR now, was at 9/10 on arrival. Nausea is improved too.
[2024-03-08 18:11] LABS: HCG Qualitative, Serum Negative (Negative)
[2024-03-08 18:24] LABS: Troponin I < 0.01 ng/ml (0.00-0.034)
[2024-03-08 18:25] VITALS: BP 125/88; PULSE 76; RESP 16; TEMP 36.8; O2SAT 99
== END 2024-03-08 18:26 | disposition home or self-care (01) ==
PROVIDERS: Emergency Provider Student in an Organized Health Care Education/Training Program; PCP Pediatrics
DX: R10.13 Epigastric pain (principal); R11.2 Nausea with vomiting, unspecified; K21.9 Gastro-esophageal reflux disease without esophagitis
CPT/HCPCS: 71045; 80053; 83690; 84484; 84703; 85025; 93005; 96361; 96374; 96375; 99284; J2405

== ENCOUNTER 2025-07-14 21:41 | Emergency (ER) | payer BC, OTHER, SELFPAY ==
--- NOTE | 2025-07-14 21:46 | HMH.EDGENADL ---
Discharge Plan Disposition Patient Disposition: Home, Self-Care Condition: Good Prescriptions Prescriptions: New clindamycin HCl [Cleocin HCl] 150 mg capsule 450 mg PO Q8H 10 Days Qty: 90 0RF oxycodone 5 mg tablet 5 mg PO DAILY Qty: 6 0RF No Action promethazine 25 mg tablet 25 mg PO Q6HP PRN (Reason: Nausea And Vomiting) Patient Comments: TAKE 1 TABLET BY MOUTH EVERY 6 HOURS NEEDED FOR NAUSEA OR VOMITING FOR UP TO 10 DAYS. oxycodone 5 mg tablet 5 mg PO Q8H PRN (Reason: pain) Qty: 12 0RF ondansetron 4 mg tablet,disintegrating 4 mg PO Q6H PRN (Reason: nausea and vomiting) 5 Days Qty: 20 0RF Referrals Follow up/Referrals: Tulio Hill [Primary Care Provider, Medical] - See instructions Activity Restrictions/Add. Instructions Additional Instructions/Restrictions: [facility] is a walk-in clinic for patients, 14 years of age and older, needing immediate care due to dental pain and swelling. Clinic registration is open?7:45 - 10:30 a.m., Friday through Friday?(closed on holidays and other select dates - see below). Patients are seen on a first-come, first-served basis and may experience wait times. Services are only available for a select number of patients each day. Patients are evaluated by expert dentists, and treated by student dentists. If a patient's needs are too great or do not meet the educational needs of dental students, they may be referred to another dental clinic. [address] [place] [address] The antibiotics as prescribed for 10 days. I also sent you with some oxycodone which you can take in addition to Tylenol and ibuprofen for pain control. Above is the information for the dental clinic. It requires $129 to be evaluated. I would show up at 7 AM to be evaluated early. Return to the emergency department for any significant facial swelling, difficulty swallowing or severe worsening pain. Clinical Impressions Clinical Impression: Abscess, dental Print Language Print Language: Hungarian Discharge ED Provider: Nabila Bucio General Adult HPI General Chief complaint: PAIN Stated complaint: Toothache pain radiating to left ear and throat Time Seen by Provider: 07/14/25 21:46 History of Present Illness HPI narrative: Patient is an otherwise healthy 30-year-old female who presented to the emergency department with left lower dental pain. Patient states that the dental pain radiates in her into her left jaw. Patient feels that she has had some facial swelling. Has not had any fevers. Patient states that she had a dental appointment today but they canceled her appointment and given her pain she came here to the emergency department. Patient does not have any significant medical problems, does not take any daily medications. Patient did just complete a dose of azithromycin for sinus infection. Patient states that she has not had any difficulty swallowing but has had significant pain with eating. Related Data Home Medications ?Medication ?Instructions ?Recorded ?Confirmed promethazine 25 mg tablet 25 mg PO Q6HP PRN Nausea And 01/17/23 01/17/23 Vomiting Previous Rx's ?Medication ?Instructions ?Recorded oxycodone 5 mg tablet 5 mg PO Q8H PRN pain #12 tabs 01/17/23 ondansetron 4 mg disintegrating 4 mg PO Q6H PRN nausea and 03/08/24 tablet vomiting 5 days #20 tabs clindamycin HCl 150 mg capsule 450 mg (3 x 150 mg) PO Q8H 10 days 07/14/25 (Cleocin HCl) #90 caps oxycodone 5 mg tablet 5 mg PO DAILY #6 tabs 07/14/25 Allergies Allergy/AdvReac Type Severity Reaction Status Date / Time diphenhydramine Allergy Other Verified 05/14/23 14:17 Penicillins Allergy Unknown Verified 05/14/23 14:17 allergy reaction [facility] Disclaimer: The information contained in this section may have been updated after the patient was seen, as this information can be updated by other users. Social History (Updated 01/17/23 @ 13:28 by Brown Clayton CRNA) Smoking Status: Never smoker alcohol intake: never substance use type: denies use current occupational status: employed Travel in the last 8 weeks?: None Have you lived/traveled outside US in past 30 days?: No Contact w/someone who lives/traveled outside US past 30 days?: No Exposure to someone with infectious disease in past 14 days?: No Do you have a fever (greater than 100.4 F or 38 C)?: No Have you tested positive for COVID-19?: No Exposed to someone with COVID-19 in past 14 days?: No Do you have a sore throat?: No Do you have a cough?: No Do you have any weakness?: No Do you have any diarrhea?: No Are you experiencing any unusual bleeding?: No Do you have any muscle aches/pain?: No Do you have any abdominal pain?: No Are you experiencing loss of taste or smell?: No Other Medical History Have you received the Flu Vaccine for this season: Yes Have you received the Pneumonia Vaccine: No ROS Obtained: Yes All systems reviewed & no additional complaints except as documented and Yes Systems reviewed as appropriate & no additional complaints except as documented Physical Exam General General appearance: alert and in no apparent distress Head Head exam: atraumatic, normocephalic and normal inspection Eye Eye exam: Present normal appearance, PERRL and EOMI; Absent scleral icterus ENT ENT exam: Present normal exam, normal oropharynx (Normal oropharynx, uvula midline, no unilateral swelling, no submandibular swelling, no facial swelling) and normal external ear exam Neck Neck exam: Present normal inspection and full ROM Chest Chest inspection: Present normal inspection and symmetric chest wall rise Respiratory Respiratory exam: Present normal lung sounds bilaterally; Absent respiratory distress or wheezes Cardiovascular Cardiovascular exam: Present regular rate, normal rhythm and normal heart sounds Abdominal Exam Abdominal exam: Present soft and distention; Absent tenderness, guarding or rebound Extremities Exam Extremities exam: Present normal inspection and full ROM Back Exam Back exam: Present normal inspection and full ROM Neurological Exam Neurological exam: Present alert and oriented X3 Psychiatric Psychiatric exam: Present normal affect and normal mood Skin Skin exam: Present warm and dry Medical Decision Making Medical Records Medical records reviewed: Yes I reviewed the patient's medical records. Screening: Per USPSTF and CDC recommendations, given the prevalence of disease in our region, it is our hospital?s policy to screen for HIV and viral Hepatitis for all patients aged 18 and over and those with ongoing risk factors. Yan Inquiry Pt receiving controlled substance: No Vital Signs: 07/14/25 21:48 07/14/25 23:24 Temperature 98 F 98.2 F Temperature Source Oral Oral Pulse Rate 66 Pulse Rate [Left Radial] 77 Respiratory Rate 20 20 Blood Pressure 140/90 Blood Pressure [Right Arm] 146/100 H Blood Pressure Mean [Right Arm] 115 Blood Pressure Source Automatic Cuff Blood Pressure Source [Right Arm] Automatic Cuff Blood Pressure Position Sitting Blood Pressure Position [Right Arm] Sitting 02 Sat by Pulse Oximetry 97 Oxygen Delivery Method Room Air Room Air Lab Data Lab results reviewed: Yes I reviewed the patient's lab results. Orders (Tests/Meds): ED MEDICATIONS Discontinued Medications Generic Name Dose Route Start Last Admin Trade Name Raul PRN Reason Stop Dose Admin Clindamycin HCl 450 mg 07/14/25 22:12 07/14/25 22:15 Clindamycin 150mg Capsule PO 07/14/25 22:13 450 mg ONCE ONE Administration Oxycodone HCl 5 mg 07/14/25 22:10 07/14/25 22:16 Oxycodone 5mg Immediate Release Tablet PO 07/14/25 22:11 5 mg ONCE ONE Administration Medical Decision Narrative: Patient is an otherwise healthy 30-year-old female who presented to the emergency department with concern for left lower dental pain and facial swelling. On arrival, patient was hemodynamically stable with unremarkable vital signs. Differential includes but not limited to: Dental abscess, facial abscess, Giancarlo's, peritonsillar abscess, amongst others. On exam, patient had no submandibular swelling to suggest Giancarlo's. Patient had no unilateral swelling to suggest HOSPICE EXECUTIVE DIRECTOR. Patient did have tenderness to percussion of the left lower tooth, there was no obvious periapical abscess to drain. Patient had no facial swelling with concern for facial abscess. Patient just completed a course of azithromycin for sinus infection however I felt that patient likely needed further antibiotic coverage therefore patient was given a dose of clindamycin in the emergency department given her allergy to penicillins. Was given a dose of oxycodone in the emergency department. At this time I felt the patient was stable and appropriate for discharge. Patient was sent with dental clinic follow-up and patient was given return precautions. Patient was otherwise discharged home in stable condition. Critical Care Critical Care Time Critical Care Time: No
[2025-07-14 21:48] VITALS: BP 146/100; PULSE 77; RESP 20; TEMP 36.6; O2SAT 97; BMI 34.0
--- NOTE | 2025-07-14 21:55 | PC.NURSE ---
Pt awake alert and oriented Skin pink warm and dry Resp full and easy Speech clear and appropriate.
[2025-07-14] MEDS: CLINDAMYCIN 150MG CAPSULE 450 MG PO (22:15)
[2025-07-14] MEDS: OXYCODONE 5MG IMMEDIATE RELEASE TABLET 5 MG PO (22:16)
[2025-07-14 23:24] VITALS: BP 140/90; PULSE 66; RESP 20; TEMP 36.8; O2SAT 97
== END 2025-07-14 23:25 | disposition home or self-care (01) ==
PROVIDERS: Emergency Provider Student in an Organized Health Care Education/Training Program; PCP Pediatrics
DX: K04.7 Periapical abscess without sinus (principal)
CPT/HCPCS: 99283